=== PATIENT | female | born 1955 | race Caucasian/White ===

== ENCOUNTER 2021-12-24 14:30 | Emergency (ER) | payer OTHER, SELFPAY ==
--- NOTE | ~2021-12-24 | XR_ITS ---
EXAMINATION: BILATERAL ANKLE, BILATERAL FOOT AND LEFT KNEE CLINICAL INFORMATION: Pain. COMPARISON: None TECHNIQUE: Left knee 4 views. 3 views each ankle. 3 views each foot. FINDINGS: Left knee: There is loss of tricompartment joint space with minimal superior patellar spurring. No visible acute fracture, dislocation or loose body seen. There is no abnormal joint effusion. Right ankle: There is moderate lateral malleolar soft tissue swelling. The ankle mortise and subtalar joints are normal. No visible acute fracture, dislocation or lytic process seen. Right foot: There is there is a subtle fracture base of the fifth metatarsal without displacement. No additional fracture or dislocation seen. There is severe loss and first metatarsophalangeal joint with moderate osteophytosis. The rest of the right foot is unremarkable. Left ankle: The ankle mortise and subtalar joints are normal. There is no visible acute fracture, dislocation. Left foot: There is vertical fracture involving the proximal phalanx and extending to PIP joint space. There is no major displacement. There is minimal soft tissue swelling. No additional fracture seen. There is mild loss of first MCP joint space with periarticular spurring and mild soft tissue swelling. XR/XR foot RT min 3V IMPRESSION: Nondisplaced fracture mid and distal proximal phalanx first digit with extension to the PIP joint left foot. Mild soft tissue swelling. 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 No acute fracture or dislocation left ankle. Moderate lateral malleolar soft tissue swelling right ankle but no visible fracture or dislocation seen. Nondisplaced fracture base of fifth metatarsal right foot with mild soft tissue swelling. Moderate to severe degenerative changes first MTP joint.
--- NOTE | ~2021-12-24 | XR_ITS ---
EXAMINATION: BILATERAL ANKLE, BILATERAL FOOT AND LEFT KNEE CLINICAL INFORMATION: Pain. COMPARISON: None TECHNIQUE: Left knee 4 views. 3 views each ankle. 3 views each foot. FINDINGS: Left knee: There is loss of tricompartment joint space with minimal superior patellar spurring. No visible acute fracture, dislocation or loose body seen. There is no abnormal joint effusion. Right ankle: There is moderate lateral malleolar soft tissue swelling. The ankle mortise and subtalar joints are normal. No visible acute fracture, dislocation or lytic process seen. Right foot: There is there is a subtle fracture base of the fifth metatarsal without displacement. No additional fracture or dislocation seen. There is severe loss and first metatarsophalangeal joint with moderate osteophytosis. The rest of the right foot is unremarkable. Left ankle: The ankle mortise and subtalar joints are normal. There is no visible acute fracture, dislocation. Left foot: There is vertical fracture involving the proximal phalanx and extending to PIP joint space. There is no major displacement. There is minimal soft tissue swelling. No additional fracture seen. There is mild loss of first MCP joint space with periarticular spurring and mild soft tissue swelling. XR/XR knee LT 4V IMPRESSION: Nondisplaced fracture mid and distal proximal phalanx first digit with extension to the PIP joint left foot. Mild soft tissue swelling. 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 No acute fracture or dislocation left ankle. Moderate lateral malleolar soft tissue swelling right ankle but no visible fracture or dislocation seen. Nondisplaced fracture base of fifth metatarsal right foot with mild soft tissue swelling. Moderate to severe degenerative changes first MTP joint.
--- NOTE | ~2021-12-24 | XR_ITS ---
EXAMINATION: BILATERAL ANKLE, BILATERAL FOOT AND LEFT KNEE CLINICAL INFORMATION: Pain. COMPARISON: None TECHNIQUE: Left knee 4 views. 3 views each ankle. 3 views each foot. FINDINGS: Left knee: There is loss of tricompartment joint space with minimal superior patellar spurring. No visible acute fracture, dislocation or loose body seen. There is no abnormal joint effusion. Right ankle: There is moderate lateral malleolar soft tissue swelling. The ankle mortise and subtalar joints are normal. No visible acute fracture, dislocation or lytic process seen. Right foot: There is there is a subtle fracture base of the fifth metatarsal without displacement. No additional fracture or dislocation seen. There is severe loss and first metatarsophalangeal joint with moderate osteophytosis. The rest of the right foot is unremarkable. Left ankle: The ankle mortise and subtalar joints are normal. There is no visible acute fracture, dislocation. Left foot: There is vertical fracture involving the proximal phalanx and extending to PIP joint space. There is no major displacement. There is minimal soft tissue swelling. No additional fracture seen. There is mild loss of first MCP joint space with periarticular spurring and mild soft tissue swelling. XR/XR foot LT min 3V IMPRESSION: Nondisplaced fracture mid and distal proximal phalanx first digit with extension to the PIP joint left foot. Mild soft tissue swelling. 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 No acute fracture or dislocation left ankle. Moderate lateral malleolar soft tissue swelling right ankle but no visible fracture or dislocation seen. Nondisplaced fracture base of fifth metatarsal right foot with mild soft tissue swelling. Moderate to severe degenerative changes first MTP joint.
--- NOTE | ~2021-12-24 | XR_ITS ---
EXAMINATION: BILATERAL ANKLE, BILATERAL FOOT AND LEFT KNEE CLINICAL INFORMATION: Pain. COMPARISON: None TECHNIQUE: Left knee 4 views. 3 views each ankle. 3 views each foot. FINDINGS: Left knee: There is loss of tricompartment joint space with minimal superior patellar spurring. No visible acute fracture, dislocation or loose body seen. There is no abnormal joint effusion. Right ankle: There is moderate lateral malleolar soft tissue swelling. The ankle mortise and subtalar joints are normal. No visible acute fracture, dislocation or lytic process seen. Right foot: There is there is a subtle fracture base of the fifth metatarsal without displacement. No additional fracture or dislocation seen. There is severe loss and first metatarsophalangeal joint with moderate osteophytosis. The rest of the right foot is unremarkable. Left ankle: The ankle mortise and subtalar joints are normal. There is no visible acute fracture, dislocation. Left foot: There is vertical fracture involving the proximal phalanx and extending to PIP joint space. There is no major displacement. There is minimal soft tissue swelling. No additional fracture seen. There is mild loss of first MCP joint space with periarticular spurring and mild soft tissue swelling. XR/XR ankle RT 2V IMPRESSION: Nondisplaced fracture mid and distal proximal phalanx first digit with extension to the PIP joint left foot. Mild soft tissue swelling. 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 No acute fracture or dislocation left ankle. Moderate lateral malleolar soft tissue swelling right ankle but no visible fracture or dislocation seen. Nondisplaced fracture base of fifth metatarsal right foot with mild soft tissue swelling. Moderate to severe degenerative changes first MTP joint.
--- NOTE | ~2021-12-24 | XR_ITS ---
EXAMINATION: BILATERAL ANKLE, BILATERAL FOOT AND LEFT KNEE CLINICAL INFORMATION: Pain. COMPARISON: None TECHNIQUE: Left knee 4 views. 3 views each ankle. 3 views each foot. FINDINGS: Left knee: There is loss of tricompartment joint space with minimal superior patellar spurring. No visible acute fracture, dislocation or loose body seen. There is no abnormal joint effusion. Right ankle: There is moderate lateral malleolar soft tissue swelling. The ankle mortise and subtalar joints are normal. No visible acute fracture, dislocation or lytic process seen. Right foot: There is there is a subtle fracture base of the fifth metatarsal without displacement. No additional fracture or dislocation seen. There is severe loss and first metatarsophalangeal joint with moderate osteophytosis. The rest of the right foot is unremarkable. Left ankle: The ankle mortise and subtalar joints are normal. There is no visible acute fracture, dislocation. Left foot: There is vertical fracture involving the proximal phalanx and extending to PIP joint space. There is no major displacement. There is minimal soft tissue swelling. No additional fracture seen. There is mild loss of first MCP joint space with periarticular spurring and mild soft tissue swelling. XR/XR ankle LT 2V IMPRESSION: Nondisplaced fracture mid and distal proximal phalanx first digit with extension to the PIP joint left foot. Mild soft tissue swelling. 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 No acute fracture or dislocation left ankle. Moderate lateral malleolar soft tissue swelling right ankle but no visible fracture or dislocation seen. Nondisplaced fracture base of fifth metatarsal right foot with mild soft tissue swelling. Moderate to severe degenerative changes first MTP joint.
[2021-12-24 14:36] VITALS: BP 150/75; PULSE 79; RESP 16; TEMP 36.6; O2SAT 97; BMI 28.0
--- NOTE | 2021-12-24 16:24 | ED_ITS ---
HPI - Fall General Chief Complaint: Fall Stated Complaint: Fall/leg and foot pain-work inj Time Seen by Provider: 12/24/21 14:47 History of Present Illness HPI Narrative: Patient complains of pain in both feet both ankles and left knee after falling down several steps this afternoon No head injury no neck injury no head pain no neck pain no back pain no rib pain, she tripped and fell there was no fainting or feeling faint Related Data Allergies Allergy/AdvReac Type Severity Reaction Status Date / Time No Known Allergies Allergy Verified 12/24/21 14:39 Review of Systems 2 Review of Systems: Positive for bilateral ankle and foot pain as well as left knee pain after fall Negatives are no headache no dizziness no weakness no confusion no loss of consciousness no neck pain no numbness weakness or tingling no chest pain no shortness of breath no abdominal pain no upper extremity pain no laceration Yes all other systems are reviewed and are negative [facility] Past Medical History Source: nursing notes reviewed Medical History (Updated 12/24/21 @ 16:24 by ALVARO Kumar) No known health problems Social History Social History Advance Directives: No Advance Directives Information Provided: No Physical Exam Vital Signs: Vital Signs: Last Vital Signs Temp 97.8 F 12/24/21 14:36 Pulse 79 12/24/21 14:36 Resp 16 12/24/21 14:36 BP 150/75 H 12/24/21 14:36 Pulse Ox 97 12/24/21 14:36 BMI result Body Mass Index 28.0 General appearance no acute distress Head is normocephalic atraumatic The neck is supple and nontender Chest wall nontender Extremities there is tenderness and swelling to the right lateral malleolus as well as the foot in the area of the 5th metacarpal on right side Left foot and ankle exam there is tenderness and mild swelling to the left lateral malleolus, there is no other significant tenderness in the foot, skin is intact in both feet Left knee had full range of motion but there was mild tenderness over the lateral aspect near the fibular head but no swelling or deformity Upper extremities were normal Course Course Course Narrative: X-rays of both ankles both feet in the left knee Left knee x-ray was normal Right foot x-ray showed a nondisplaced 5th metacarpal fracture but no fractures an ankle Left foot and ankle showed a nondisplaced fracture of the proximal phalanx of the 1st toe, no other fractures Patient was given a walking boot for the right foot and bushra tape for the left toe injury and she will follow with orthopedics Discharge Plan Discharge Clinical Impression: Foot fracture, right, Right ankle sprain, Fracture of left great toe Patient Disposition: Home, Self-Care Additional Instructions: Follow with orthopedist for further evaluation of right 5th metacarpal fracture and left big toe fracture Limited weight-bearing Return any time any concerns You could use Tylenol and Motrin as needed for pain Referrals: Joshua Yancey MD [Physician] - 2 days (Right 5th metatarsal fracture and the left big toe fracture)
== END 2021-12-24 16:53 | disposition home or self-care (01) ==
PROVIDERS: Emergency Provider Emergency Medicine
DX: S92.354A Nondisplaced fracture of fifth metatarsal bone, right foot, initial encounter for closed fracture (principal); S92.415A Nondisplaced fracture of proximal phalanx of left great toe, initial encounter for closed fracture; W10.8XXA Fall (on) (from) other stairs and steps, initial encounter; Y93.9 Activity, unspecified; Y92.410 Unspecified street and highway as the place of occurrence of the external cause; Y99.9 Unspecified external cause status
CPT/HCPCS: 73564; 73600; 73630; 99283

== ENCOUNTER → 2021-12-27 11:07 | Outpatient (BNVA) | payer OTHER, SELFPAY | PROVIDERS: Visit Provider Physician Assistant | DX: S92.351A Displaced fracture of fifth metatarsal bone, right foot, initial encounter for closed fracture (principal) | CPT/HCPCS: 99212 ==